=== PATIENT | male | born 1970 | race Caucasian/White ===

== ENCOUNTER 2019-11-19 22:43 | Emergency (ER) | payer BC ==
[~2019-11-19] VITALS: Ht 175.3 cm; Wt 104.3 kg
[2019-11-19 22:55] VITALS: BP_SYST 110
[2019-11-20] MEDS ORDERED: KETOROLAC TROMETHAMINE 60 MG/2 ML VIAL IM ONE (00:30)
[2019-11-20 01:11] VITALS: BP_SYST 110
== END 2019-11-20 01:11 | disposition home or self-care (01) ==
LOC: SED 22:43
DX: S92.314A Nondisplaced fracture of first metatarsal bone, right foot, initial encounter for closed fracture (principal); S93.401A Sprain of unspecified ligament of right ankle, initial encounter; X50.0XXA Overexertion from strenuous movement or load, initial encounter; Y93.02 Activity, running; Y92.89 Other specified places as the place of occurrence of the external cause; Y99.8 Other external cause status
CPT/HCPCS: 73610; 73630; 96372; 99284; J1885